=== PATIENT | male | born 1995 | race African-American/Black ===

== ENCOUNTER 2017-08-18 15:34 | Emergency (ER) | payer OTHER ==
[2017-08-18 15:44] VITALS: BP 118/68
--- NOTE | 2017-08-18 16:00 | ER Document Report ---
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 he had disloacted thumb that the naval ER reduced ans splinted, he then saw ortho and had a cast placed. He wants to know how long he has to wear the cast etc. He has occasional numbness to 3,4,5 fingers that is relieved when he raises his arm and shakes it. Associated Symptoms: None Exacerbated by: Denies Relieved by: Denies - ROS ROS below otherwise negative: Yes Systems Reviewed and Negative: Yes All other systems reviewed and negative Past Medical History - General Information source: Patient - Social History Smoking Status: Never Smoker Frequency of alcohol use: None Drug Abuse: None Lives with: Alone Family History: Reviewed & Not Pertinent - Medical History Medical History: Negative Surgical Hx: Negative Vertical Provider Document - CONSTITUTIONAL Agree With Documented VS: Yes Exam Limitations: No Limitations General Appearance: No Apparent Distress - INFECTION CONTROL TRAVEL OUTSIDE OF THE [place] IN LAST 30 DAYS: No - HEENT HEENT: Normocephalic - NECK Neck: Supple - MUSCULOSKELETAL/EXTREMETIES Musculoskeletal/Extremeties: MAEW - fingers exposed from cast, Non-Tender, No Edema - NEURO Level of Consciousness: Awake Motor/Sensory: No Motor Deficit, No Sensory Deficit - DERM Integumentary: No Rash Course - Re-evaluation Re-evalutation: 08/18/17 16:24 Offered to remove the cast for the patient and he does not want to do that. [place] he wants to be seen sooner than the August appointment that the orthopedist made for him. - Vital Signs Vital signs: Temp Pulse Resp BP Pulse Ox 99.0 F 67 20 118/68 98 08/18/17 15:42 08/18/17 15:42 08/18/17 15:42 08/18/17 15:42 08/18/17 15:42 Discharge - Discharge Clinical Impression: right thumb dislocation 2nd opinion Condition: Good Disposition: HOME, SELF-CARE Additional Instructions: Go to the orthopedic clinic at [place] tomorrow to see if they will see you tomorrow instead of August If you change your mind about needing a cast removal and splint placement she can come back to the emergency room here or [place]. Referrals: ANGELA PORTILLO, [ACTIVE STAFF] - Follow up as needed
== END 2017-08-18 16:29 | disposition home or self-care (01) ==
LOC: ER 15:34
DX: Z47.89 Encounter for other orthopedic aftercare (principal)
CPT/HCPCS: 99282